=== PATIENT | male | born 1985 | race Caucasian/White ===

== ENCOUNTER 2023-07-06 20:31 | Emergency (ER) | payer MEDICAID ==
[~2023-07-06] VITALS: Ht 175.3 cm; Wt 82.0 kg
[2023-07-06 20:45] VITALS: O2SAT 97
[2023-07-06] MEDS ORDERED: MORPHINE SULFATE 4 MG/ML CPJ (NOT FOR IM USE) IV STA (21:33)
[2023-07-06] MEDS ORDERED: ONDANSETRON HCL 4MG/2ML INJ IV STA (21:33)
[2023-07-06 21:43] LABS: BASOPHILS % 0.3 % (0.0-2.0); EOSINOPHILS % 0.3 % (0.0-5.0); HEMATOCRIT. 43.8 % (42.0-52.0); LYMPHOCYTES % 8.1 % (20.0-50.0); MEAN CORPUSCULAR HEMOGLOBIN 29.5 pg (28.0-32.0); MEAN CORPUSCULAR HGB CONC 34.2 g/dL (31.0-37.0); MEAN CORPUSCULAR VOLUME 86.4 fL (80.0-94.0); MEAN PLATELET VOLUME 7.7 fl (7.4-10.4); NEUTROPHILS % 85.3 % (40.0-76.0); PLATELET 257 x1000/uL (130-400); RED BLOOD CELL COUNT 5.07 mill/uL (4.7-6.1); RED CELL DISTRIBUTION WIDTH 13.4 % (11.6-14.6); WHITE BLOOD COUNT 13.8 x1000/uL (4.5-11.0)
[2023-07-06] MEDS ORDERED: SODIUM CHLORIDE 0.9% 1,000 ML IV ONE (21:45)
[2023-07-06 21:50] LABS: CHLORIDE 106 mEq/L (98-107); INDEX HEMOLYSI 1 (1-3); INDEX ICTERIC 1 (1-4); INDEX LIPEMIC 1 (1-3); POTASSIUM 2.9 mEq/L (3.5-5.1); SODIUM 136 mEq/L (136-145)
[2023-07-06 21:52] LABS: PROTHROMBIN TIME 10.9 sec (9.6-11.0)
[2023-07-06 22:00] LABS: ALANINE AMINOTRANSFERASE 35 IU/L (13-61); ALBUMIN 4.3 g/dL (3.4-5.0); ASPARTATE AMINOTRANSFERASE 24 IU/L (15-37); BILIRUBIN TOTAL 0.9 mg/dL (0.1-1.0); CALCIUM 9.1 mg/dL (8.5-10.1); CARBON DIOXIDE 24 mEq/L (21-32); GLUCOSE 111 mg/dL (70-105); PROTEIN TOTAL 7.7 g/dL (6.0-8.3); TROPONIN I HIGH SENSITIVITY 6 ng/L (<78); UREA NITROGEN BLOOD 18 mg/dL (7-21)
[2023-07-06 22:05] LABS: LACTIC ACID 2.5 mmol/L (0.4-2.0)
[2023-07-06 23:20] VITALS: TEMP 98.4
[2023-07-06 23:41] LABS: TROPONIN I HIGH SENSITIVITY 6 ng/L (<78)
[2023-07-07] MEDS ORDERED: POTASSIUM CHLORIDE 20MEQ/PACKET PO ONE (00:30)
[2023-07-07 00:37] LABS: CLARITY URINE CLEAR (CLEAR); COLOR URINE YELLOW (YELLOW); GLUCOSE URINE NEGATIVE (NEGATIVE); KETONES URINE 1+ (NEGATIVE); LEUKOCYTE ESTERASE URINE NEGATIVE (NEGATIVE); NITRITE URINE NEGATIVE (NEGATIVE); OCCULT BLOOD URINE 3+ (NEGATIVE); PH URINE 5.5 (4.5-8.0); PROTEIN URINE NEGATIVE (NEGATIVE); SPECIFIC GRAVITY URINE 1.045 (1.005-1.030); UROBILINOGEN URINE 0.2 E.U./dL (0.2-1.0)
[2023-07-07] MEDS ORDERED: TAMS-11 PO (00:50)
[2023-07-07] MEDS ORDERED: ACET-2708 MT (00:50)
[2023-07-07] MEDS ORDERED: IBUP-2029 MT (00:50)
[2023-07-07 01:21] VITALS: BP 128/71; PULSE 75; RESP 19
[2023-07-07 05:14] LABS: RBC URINE 50-100 /hpf (0-2); WBC URINE 0-2 /hpf (0-2)
[2023-07-07 05:15] LABS: BACTERIA URINE NONE SEEN; SQUAMOUS EPITHELIAL CELL URINE NONE SEEN /lpf (RARE/1+)
== END 2023-07-07 01:23 | disposition home or self-care (01) ==
LOC: ER 20:31
DX: N20.0 Calculus of kidney (principal)
CPT/HCPCS: 80053; 81003; 83605; 83690; 85025; 85610; 87040; 84484; 36415; 71045; 74177; 96361; 96374; 96375; 99285; J2405; J2270; J7030; Z7610